=== PATIENT | male | born 1930 | race Caucasian/White ===

== ENCOUNTER 2018-08-01 15:04 | Inpatient (IN) ==
[2018-08-01 16:32] LABS: INR 3.1; PT Patient Result 33.5 SECS
[2018-08-01] MEDS ORDERED: DIPH/TET/ACEL PERT BOOSTER VACCINE 0.5 ML VIAL IM ONE (16:32)
[2018-08-01] MEDS ORDERED: HYDROmorphone 2 MG/1 ML VIAL IV STA (16:32)
[2018-08-01] MEDS ORDERED: ONDANSETRON 4 MG/2 ML VIAL IV STA (16:32)
[2018-08-01 16:54] LABS: Basophils # 0.1 10*3/uL (0.0-0.2); Basophils % 0.7 % (0.0-0.8); Eosinophils # 0.2 10*3/uL (0.0-0.87); Hematocrit 36.6 VOL% (42.0-52.0); Hemoglobin 11.4 GM/DL (14.0-18.0); Immature Granulocytes % 0.8 %; Lymphocytes # 2.4 10*3/uL (1.4-4.0); Lymphocytes % 19.7 % (21.2-54.2); Mean Corpuscular HGB Conc 31.1 GM/DL (32-36); Mean Corpuscular Hemoglobin 29 PG (27-34); Mean Platelet Volume 10.5 FL (9.6-12.0); Monocytes # 1.1 10*3/uL (0.11-0.8); Monocytes % 9.2 % (1.7-12.7); Neutrophils # 8.3 10*3/uL (1.4-7.4); Neutrophils % 67.6 % (38.7-73.9); Platelet Count 205 T/CUMM (130-400); Red Blood Count 3.98 MC/CUMM (3.8-5.5); Red Cell Distribution Width 17.2 % (9.3-17.3); White Blood Count 12.2 T/CUMM (4-12)
[2018-08-01 17:03] LABS: Albumin 3.5 G/DL (3.4-5.0); Bilirubin,Total 1.1 MG/DL (0.2-1.0); Calcium 8.7 MG/DL (8.5-10.1)
[2018-08-01 17:04] LABS: Osmolality,Calculated 290.8 MOS/KG (273-304); Potassium 4.1 MMOL/L (3.5-5.1)
[2018-08-01 17:16] LABS: Apearance,Urine CLEAR (Clear); Bilirubin,Urine Negative (Negative); Blood, Urine Negative (Negative); Glucose,Urine (UA) Negative (Negative); Ketones,Urine Negative (Negative); Mucus,Urine Occasional /LPF (Occasional); Nitrite,Urine Negative (Negative); Protein,Urine Negative; RBC,Urine 2 /HPF (0-4); Urine Color Yellow (Yellow); Urine Specific Gravity 1.011 (1.001-1.035); Urine Urobilinogen < 2.0 EU/DL (0.2-1.0); WBC,Urine <1 /HPF (0-6)
[2018-08-01] MEDS ORDERED: ACETAMINOPHEN 325 MG TABLET PO PRN (18:47)
[2018-08-01] MEDS ORDERED: ONDANSETRON 4 MG/2 ML VIAL IV PRN (18:47)
[2018-08-01] MEDS ORDERED: DIGOXIN 0.125 MG TABLET PO SCH (19:00)
[2018-08-01] MEDS ORDERED: DILTIAZEM 25 MG/5 ML VIAL IV STA (19:05)
[2018-08-01] MEDS: QUEtiapine 25 MG TABLET PO SCH (21:33)
[2018-08-01] MEDS: DIGOXIN 0.125 MG TABLET PO SCH (21:40)
[2018-08-02 06:30] LABS: Basophils # 0.1 10*3/uL (0.0-0.2); Basophils % 0.5 % (0.0-0.8); Eosinophils # 0.1 10*3/uL (0.0-0.87); Eosinophils % 1.1 % (0.00-10.9); Hematocrit 33.3 VOL% (42.0-52.0); Hemoglobin 10.3 GM/DL (14.0-18.0); Immature Granulocytes % 0.4 %; Immature Granulocytes Absolute 0.05 #; Lymphocytes # 1.2 10*3/uL (1.4-4.0); Lymphocytes % 9.5 % (21.2-54.2); Mean Corpuscular HGB Conc 30.9 GM/DL (32-36); Mean Corpuscular Hemoglobin 29 PG (27-34); Mean Corpuscular Volume 93.5 FL (87-102); Monocytes # 1.2 10*3/uL (0.11-0.8); Neutrophils # 10.2 10*3/uL (1.4-7.4); Neutrophils % 79.5 % (38.7-73.9); Platelet Count 187 T/CUMM (130-400); Red Blood Count 3.56 MC/CUMM (3.8-5.5); Red Cell Distribution Width 17.1 % (9.3-17.3); White Blood Count 12.9 T/CUMM (4-12)
[2018-08-02 06:41] LABS: INR 3.7; PT Patient Result 39.5 SECS
[2018-08-02 06:55] LABS: Calcium 8.4 MG/DL (8.5-10.1); Potassium 4.2 MMOL/L (3.5-5.1); Risk Ratio 1.92; Thyroid Stimulating Hormone 0.343 uIU/ml (0.358-3.74); VLDL CHOLESTEROL 12.6 MG/DL
[2018-08-02] MEDS: MULTIVITAMIN (CENTRUM) TABLET PO SCH (10:50)
[2018-08-02] MEDS: FUROSEMIDE 40 MG TABLET PO SCH (10:50)
[2018-08-02] MEDS: TAMSULOSIN 0.4 MG CAPSULE PO SCH (10:50)
[2018-08-02] MEDS: PANTOPRAZOLE 40 MG TABLET PO SCH (10:50)
[2018-08-02] MEDS: FINASTERIDE 5 MG TABLET PO SCH (10:50)
[2018-08-02] MEDS ORDERED: SODIUM CHLORIDE 0.9% 1,000 ML IV PRN ×2 (12:20→13:21)
[2018-08-02] MEDS ORDERED: PHYTONADIONE 5 MG/5 ML ORAL.SYR PO ONE (13:30)
[2018-08-02] MEDS ORDERED: FUROSEMIDE 20 MG/2 ML VIAL IV ONE ×2 (16:49→19:29)
[2018-08-02 18:26] LABS: INR 2.5
[2018-08-02 18:48] LABS: PT Patient Result 26.9 SECS
[2018-08-02] MEDS: QUEtiapine 25 MG TABLET PO SCH (20:25)
[2018-08-03 00:37] LABS: INR 1.5; PT Patient Result 16.7 SECS
[2018-08-03 05:57] LABS: INR 1.3; PT Patient Result 14.4 SECS
[2018-08-03] MEDS ORDERED: VANCOMYCIN INJ 1,000 MG in SODIUM CHLORIDE 0.9% 250 ML IV ONE (06:30)
[2018-08-03] MEDS ORDERED: ceFAZolin 1,000 MG in SYRINGE 1 EACH IV ONE (06:30)
[2018-08-03 06:39] LABS: Calcium 8.6 MG/DL (8.5-10.1); Osmolality,Calculated 282.5 MOS/KG (273-304); Potassium 3.5 MMOL/L (3.5-5.1)
[2018-08-03 06:40] LABS: Calcium 8.8 MG/DL (8.5-10.1); Osmolality,Calculated 280.7 MOS/KG (273-304); Potassium 3.5 MMOL/L (3.5-5.1)
[2018-08-03 07:48] LABS: Basophils # 0.1 10*3/uL (0.0-0.2); Basophils % 0.7 % (0.0-0.8); Eosinophils # 0.8 10*3/uL (0.0-0.87); Hematocrit 29.3 VOL% (42.0-52.0); Hemoglobin 9.1 GM/DL (14.0-18.0); Immature Granulocytes % 0.6 %; Immature Granulocytes Absolute 0.08 #; Lymphocytes # 1.6 10*3/uL (1.4-4.0); Lymphocytes % 12.4 % (21.2-54.2); Mean Corpuscular HGB Conc 31.1 GM/DL (32-36); Mean Corpuscular Hemoglobin 29 PG (27-34); Mean Corpuscular Volume 93.6 FL (87-102); Mean Platelet Volume 11.2 FL (9.6-12.0); Monocytes % 7.7 % (1.7-12.7); Neutrophils # 9.5 10*3/uL (1.4-7.4); Neutrophils % 72.6 % (38.7-73.9); Platelet Count 154 T/CUMM (130-400); Red Blood Count 3.13 MC/CUMM (3.8-5.5); Red Cell Distribution Width 16.6 % (9.3-17.3); White Blood Count 13.1 T/CUMM (4-12)
[2018-08-03] MEDS ORDERED: TUBERCULIN SKIN TEST 0.1 ML SYRINGE INTRADERM ONE (09:14)
[2018-08-03] MEDS ORDERED: SODIUM CHLORIDE 0.9% 1,000 ML IV PRN (10:27)
[2018-08-03] MEDS ORDERED: BACITRACIN OINT 0.9 GM PACK TOP ONE (11:36)
[2018-08-03] MEDS ORDERED: MORPHINE 4 MG/1 ML VIAL IV PRN ×2 (12:52)
[2018-08-03] MEDS ORDERED: SEVOFLURANE 1 UNIT/15 MINUTE INH ONE (13:09)
[2018-08-03] MEDS ORDERED: GLYCOPYRROLATE 0.4 MG/2 ML VIAL ONE (13:10)
[2018-08-03] MEDS ORDERED: PHENYLEPHRINE 10 MG/1 ML VIAL IV ONE (13:10)
[2018-08-03] MEDS ORDERED: ETOMIDATE 40 MG/20 ML VIAL IV ONE (13:10)
[2018-08-03] MEDS ORDERED: PHENYLEPHRINE 1 MG/10 ML SYRINGE IV ONE (13:10)
[2018-08-03] MEDS ORDERED: fentaNYL 100 MCG/2 ML VIAL ONE (13:10)
[2018-08-03] MEDS ORDERED: ESMOLOL 100 MG/10 ML VIAL IV ONE (13:10)
[2018-08-03] MEDS ORDERED: LACTATED RINGERS 1,000 ML IV ONE (13:11)
[2018-08-03] MEDS ORDERED: ROCURONIUM 100 MG/10 ML VIAL IV ONE (13:11)
[2018-08-03] MEDS ORDERED: NEOSTIGMINE 10 MG/10 ML VIAL ONE (13:11)
[2018-08-03] MEDS ORDERED: SODIUM CHLORIDE 0.9% 250 ML IV ONE (13:11)
[2018-08-03 13:56] LABS: Hematocrit 31.8 VOL% (42.0-52.0); Hemoglobin 9.8 GM/DL (14.0-18.0)
[2018-08-03] MEDS: MULTIVITAMIN (CENTRUM) TABLET PO SCH (13:57)
[2018-08-03] MEDS: TAMSULOSIN 0.4 MG CAPSULE PO SCH (13:57)
[2018-08-03] MEDS: PANTOPRAZOLE 40 MG TABLET PO SCH (13:58)
[2018-08-03] MEDS: SODIUM CHLORIDE 0.9% 1,000 ML IV SCH (16:09)
[2018-08-03] MEDS: ceFAZolin 1,000 MG in SYRINGE 1 EACH IV SCH (16:21)
[2018-08-03] MEDS: FUROSEMIDE 40 MG TABLET PO SCH (16:21)
[2018-08-03] MEDS: POTASSIUM CHLORIDE 8 MEQ CAPSULE PO SCH (16:21)
[2018-08-03] MEDS: FINASTERIDE 5 MG TABLET PO SCH (16:22)
[2018-08-03] MEDS: ACETAMINOPHEN 500 MG TABLET PO SCH ×2 (16:22→23:17)
[2018-08-03] MEDS ORDERED: WARFARIN 5 MG TABLET PO SCH (20:00)
[2018-08-03] MEDS: DOCUSATE SODIUM 100 MG CAPSULE PO SCH (21:19)
[2018-08-03] MEDS: QUEtiapine 25 MG TABLET PO SCH (21:19)
[2018-08-03] MEDS: DIGOXIN 0.125 MG TABLET PO SCH (21:19)
[2018-08-04] MEDS: SODIUM CHLORIDE 0.9% 1,000 ML IV SCH ×3 (00:52→11:01)
[2018-08-04] MEDS: ceFAZolin 1,000 MG in SYRINGE 1 EACH IV SCH (01:04)
[2018-08-04] MEDS: ACETAMINOPHEN 500 MG TABLET PO SCH ×2 (04:45→11:55)
[2018-08-04 07:02] LABS: INR 1.3; PT Patient Result 13.6 SECS
[2018-08-04 07:11] LABS: Calcium 7.8 MG/DL (8.5-10.1); Osmolality,Calculated 284.5 MOS/KG (273-304); Potassium 3.7 MMOL/L (3.5-5.1)
[2018-08-04 07:55] LABS: Basophils # 0.1 10*3/uL (0.0-0.2); Basophils % 0.5 % (0.0-0.8); Eosinophils # 0.7 10*3/uL (0.0-0.87); Hematocrit 25.1 VOL% (42.0-52.0); Hemoglobin 7.9 GM/DL (14.0-18.0); Immature Granulocytes % 0.4 %; Immature Granulocytes Absolute 0.04 #; Lymphocytes # 0.9 10*3/uL (1.4-4.0); Lymphocytes % 8.7 % (21.2-54.2); Mean Corpuscular HGB Conc 31.5 GM/DL (32-36); Mean Corpuscular Hemoglobin 29 PG (27-34); Mean Corpuscular Volume 93.3 FL (87-102); Mean Platelet Volume 11.1 FL (9.6-12.0); Monocytes % 9.3 % (1.7-12.7); Neutrophils # 7.6 10*3/uL (1.4-7.4); Neutrophils % 74.1 % (38.7-73.9); Platelet Count 134 T/CUMM (130-400); Red Blood Count 2.69 MC/CUMM (3.8-5.5); Red Cell Distribution Width 15.6 % (9.3-17.3); White Blood Count 10.2 T/CUMM (4-12)
[2018-08-04] MEDS ORDERED: PANTOPRAZOLE 40 MG TABLET PO SCH (09:00)
[2018-08-04] MEDS: TAMSULOSIN 0.4 MG CAPSULE PO SCH (09:24)
[2018-08-04] MEDS: FINASTERIDE 5 MG TABLET PO SCH (09:28)
[2018-08-04] MEDS: DOCUSATE SODIUM 100 MG CAPSULE PO SCH ×2 (09:28→21:00)
[2018-08-04] MEDS: FERROUS SULFATE 325 MG TABLET PO SCH ×2 (09:28→21:01)
[2018-08-04] MEDS: MULTIVITAMIN (CENTRUM) TABLET PO SCH (09:28)
[2018-08-04] MEDS: FUROSEMIDE 40 MG TABLET PO SCH (09:28)
[2018-08-04] MEDS: ASPIRIN EC 81 MG TABLET PO SCH ×2 (09:28→21:01)
[2018-08-04] MEDS: PANTOPRAZOLE 40 MG TABLET PO SCH (09:28)
[2018-08-04] MEDS ORDERED: SODIUM CHLORIDE 0.9% 1,000 ML IV PRN (11:45)
[2018-08-04] MEDS ORDERED: diphenhydrAMINE CAP 25 MG CAPSULE PO PRN (11:45)
[2018-08-04] MEDS ORDERED: FUROSEMIDE 20 MG/2 ML VIAL IV SCH (12:00)
[2018-08-04 13:07] LABS: Hematocrit 27.2 VOL% (42.0-52.0); Hemoglobin 8.3 GM/DL (14.0-18.0)
[2018-08-04] MEDS: MIDODRINE 5 MG TABLET PO SCH ×3 (16:36→21:00)
[2018-08-04] MEDS: WARFARIN 2.5 MG TABLET PO SCH (18:50)
[2018-08-04] MEDS: QUEtiapine 25 MG TABLET PO SCH (21:01)
[2018-08-05 03:12] LABS: Basophils % 0.4 % (0.0-0.8); Eosinophils # 0.8 10*3/uL (0.0-0.87); Eosinophils % 7.2 % (0.00-10.9); Hematocrit 32.2 VOL% (42.0-52.0); Immature Granulocytes % 0.5 %; Immature Granulocytes Absolute 0.05 #; Mean Corpuscular HGB Conc 31.1 GM/DL (32-36); Mean Corpuscular Hemoglobin 29 PG (27-34); Mean Corpuscular Volume 91.7 FL (87-102); Mean Platelet Volume 10.9 FL (9.6-12.0); Monocytes # 0.8 10*3/uL (0.11-0.8); Monocytes % 8.1 % (1.7-12.7); Neutrophils # 7.7 10*3/uL (1.4-7.4); Neutrophils % 73.8 % (38.7-73.9); Platelet Count 138 T/CUMM (130-400); Red Blood Count 3.51 MC/CUMM (3.8-5.5); Red Cell Distribution Width 15.7 % (9.3-17.3); White Blood Count 10.4 T/CUMM (4-12)
[2018-08-05 03:17] LABS: INR 1.5; PT Patient Result 16.5 SECS
[2018-08-05 03:29] LABS: Albumin 2.4 G/DL (3.4-5.0); Bilirubin,Total 1.6 MG/DL (0.2-1.0); Calcium 7.9 MG/DL (8.5-10.1); Osmolality,Calculated 288.3 MOS/KG (273-304); Potassium 3.7 MMOL/L (3.5-5.1); Total Protein 5.8 G/DL (6.4-8.3)
[2018-08-05] MEDS: SODIUM CHLORIDE 0.9% 1,000 ML IV SCH ×2 (04:40→15:03)
[2018-08-05] MEDS ORDERED: DIGOXIN 0.25 MG TABLET PO ONE (07:55)
[2018-08-05] MEDS: HEPARIN DRIP 25,000 UNITS/500 ML PREMIX IV SCH (08:23)
[2018-08-05] MEDS: MAGNESIUM HYDROXIDE SUSP 30 ML UDCUP PO PRN (09:40)
[2018-08-05] MEDS: MIDODRINE 5 MG TABLET PO SCH (09:41)
[2018-08-05] MEDS: PANTOPRAZOLE 40 MG TABLET PO SCH (09:41)
[2018-08-05] MEDS: POTASSIUM CHLORIDE 8 MEQ CAPSULE PO SCH (09:41)
[2018-08-05] MEDS: MULTIVITAMIN (CENTRUM) TABLET PO SCH (09:41)
[2018-08-05] MEDS: FINASTERIDE 5 MG TABLET PO SCH (09:41)
[2018-08-05] MEDS: FUROSEMIDE 40 MG TABLET PO SCH (09:41)
[2018-08-05] MEDS: TAMSULOSIN 0.4 MG CAPSULE PO SCH (09:41)
[2018-08-05] MEDS: FERROUS SULFATE 325 MG TABLET PO SCH ×2 (09:41→21:13)
[2018-08-05] MEDS: ASPIRIN EC 81 MG TABLET PO SCH ×2 (09:41→21:14)
[2018-08-05] MEDS: DOCUSATE SODIUM 100 MG CAPSULE PO SCH ×2 (09:41→21:13)
[2018-08-05] MEDS ORDERED: MIDODRINE 5 MG TABLET PO PRN (10:45)
[2018-08-05] MEDS: WARFARIN 2.5 MG TABLET PO SCH (19:50)
[2018-08-05] MEDS: METOPROLOL TARTRATE 25 MG TABLET PO SCH (21:13)
[2018-08-05] MEDS: QUEtiapine 25 MG TABLET PO SCH (21:13)
[2018-08-06] MEDS: SODIUM CHLORIDE 0.9% 1,000 ML IV SCH ×3 (00:14→20:05)
[2018-08-06 05:50] LABS: Basophils # 0.1 10*3/uL (0.0-0.2); Basophils % 0.6 % (0.0-0.8); Eosinophils # 0.3 10*3/uL (0.0-0.87); Eosinophils % 2.8 % (0.00-10.9); Hematocrit 30.3 VOL% (42.0-52.0); Hemoglobin 9.6 GM/DL (14.0-18.0); Immature Granulocytes % 0.5 %; Immature Granulocytes Absolute 0.06 #; Lymphocytes # 1.1 10*3/uL (1.4-4.0); Lymphocytes % 10.4 % (21.2-54.2); Mean Corpuscular HGB Conc 31.7 GM/DL (32-36); Mean Corpuscular Hemoglobin 29 PG (27-34); Mean Corpuscular Volume 90.2 FL (87-102); Mean Platelet Volume 10.6 FL (9.6-12.0); Monocytes # 0.9 10*3/uL (0.11-0.8); Monocytes % 8.5 % (1.7-12.7); Neutrophils # 8.4 10*3/uL (1.4-7.4); Neutrophils % 77.2 % (38.7-73.9); Platelet Count 174 T/CUMM (130-400); Red Blood Count 3.36 MC/CUMM (3.8-5.5); Red Cell Distribution Width 15.5 % (9.3-17.3); White Blood Count 10.9 T/CUMM (4-12)
[2018-08-06 06:13] LABS: Albumin 2.2 G/DL (3.4-5.0); Bilirubin,Total 1.6 MG/DL (0.2-1.0); Calcium 7.8 MG/DL (8.5-10.1); Osmolality,Calculated 283.5 MOS/KG (273-304); Potassium 3.7 MMOL/L (3.5-5.1); Total Protein 5.7 G/DL (6.4-8.3)
[2018-08-06 06:47] LABS: INR 1.7; PT Patient Result 18.8 SECS
[2018-08-06] MEDS: PANTOPRAZOLE 40 MG TABLET PO SCH (10:21)
[2018-08-06] MEDS: FERROUS SULFATE 325 MG TABLET PO SCH ×2 (10:21→20:01)
[2018-08-06] MEDS: FUROSEMIDE 40 MG TABLET PO SCH (10:22)
[2018-08-06] MEDS: METOPROLOL TARTRATE 25 MG TABLET PO SCH (10:22)
[2018-08-06] MEDS: MULTIVITAMIN (CENTRUM) TABLET PO SCH ×2 (10:22→10:40)
[2018-08-06] MEDS: FINASTERIDE 5 MG TABLET PO SCH (10:22)
[2018-08-06] MEDS: DOCUSATE SODIUM 100 MG CAPSULE PO SCH ×2 (10:22→20:01)
[2018-08-06] MEDS: TAMSULOSIN 0.4 MG CAPSULE PO SCH (10:33)
[2018-08-06] MEDS: ASPIRIN EC 81 MG TABLET PO SCH ×2 (10:35→20:01)
[2018-08-06] MEDS: HEPARIN DRIP 25,000 UNITS/500 ML PREMIX IV SCH (11:50)
[2018-08-06] MEDS ORDERED: METOPROLOL TARTRATE 5 MG/5 ML VIAL IV ONE (11:53)
[2018-08-06] MEDS: BISOPROLOL 5 MG TABLET PO SCH (12:13)
[2018-08-06] MEDS: WARFARIN 2.5 MG TABLET PO SCH (18:17)
[2018-08-06] MEDS: QUEtiapine 25 MG TABLET PO SCH (20:01)
[2018-08-06] MEDS: DIGOXIN 0.125 MG TABLET PO SCH (20:01)
[2018-08-07 01:29] LABS: INR 2.1
[2018-08-07 01:30] LABS: PT Patient Result 22.2 SECS
[2018-08-07 01:40] LABS: Bilirubin,Total 1.4 MG/DL (0.2-1.0); Calcium 7.3 MG/DL (8.5-10.1); Osmolality,Calculated 283.5 MOS/KG (273-304); Potassium 3.5 MMOL/L (3.5-5.1)
[2018-08-07] MEDS: SODIUM CHLORIDE 0.9% 1,000 ML IV SCH (06:27)
[2018-08-07] MEDS: FUROSEMIDE 40 MG TABLET PO SCH (10:08)
[2018-08-07] MEDS: PANTOPRAZOLE 40 MG TABLET PO SCH (10:08)
[2018-08-07] MEDS: MULTIVITAMIN (CENTRUM) TABLET PO SCH (10:08)
[2018-08-07] MEDS: FINASTERIDE 5 MG TABLET PO SCH (10:08)
[2018-08-07] MEDS: ASPIRIN EC 81 MG TABLET PO SCH ×2 (10:08→20:37)
[2018-08-07] MEDS: TAMSULOSIN 0.4 MG CAPSULE PO SCH (10:08)
[2018-08-07] MEDS: BISOPROLOL 5 MG TABLET PO SCH (10:08)
[2018-08-07] MEDS: DOCUSATE SODIUM 100 MG CAPSULE PO SCH ×2 (10:08→20:37)
[2018-08-07] MEDS: FERROUS SULFATE 325 MG TABLET PO SCH ×2 (10:08→20:37)
[2018-08-07] MEDS: POTASSIUM CHLORIDE 8 MEQ CAPSULE PO SCH (10:10)
[2018-08-07] MEDS: HEPARIN DRIP 25,000 UNITS/500 ML PREMIX IV SCH (15:01)
[2018-08-07] MEDS: WARFARIN 2.5 MG TABLET PO SCH (18:34)
[2018-08-07] MEDS: QUEtiapine 25 MG TABLET PO SCH (20:37)
[2018-08-08 00:43] LABS: Bilirubin,Total 1.4 MG/DL (0.2-1.0); Calcium 7.4 MG/DL (8.5-10.1); Osmolality,Calculated 285.4 MOS/KG (273-304); Potassium 3.6 MMOL/L (3.5-5.1)
[2018-08-08 08:12] LABS: INR 2.3
[2018-08-08 08:14] LABS: PT Patient Result 25.2 SECS
[2018-08-08] MEDS: DOCUSATE SODIUM 100 MG CAPSULE PO SCH (08:20)
[2018-08-08] MEDS: BISOPROLOL 5 MG TABLET PO SCH (08:20)
[2018-08-08] MEDS: PANTOPRAZOLE 40 MG TABLET PO SCH (08:20)
[2018-08-08] MEDS: TAMSULOSIN 0.4 MG CAPSULE PO SCH (08:20)
[2018-08-08] MEDS: FUROSEMIDE 40 MG TABLET PO SCH (08:21)
[2018-08-08] MEDS: MULTIVITAMIN (CENTRUM) TABLET PO SCH (08:21)
[2018-08-08] MEDS: ASPIRIN EC 81 MG TABLET PO SCH (08:21)
[2018-08-08] MEDS: FINASTERIDE 5 MG TABLET PO SCH (08:21)
[2018-08-08] MEDS: FERROUS SULFATE 325 MG TABLET PO SCH (08:21)
[2018-08-08] MEDS: SODIUM CHLORIDE 0.9% 1,000 ML IV SCH ×3 (10:46→13:27)
[2018-08-08 11:59] VITALS: BP 141/76
[2018-08-08] MEDS: HEPARIN DRIP 25,000 UNITS/500 ML PREMIX IV SCH (12:45)
[2018-08-08] MEDS: MAGNESIUM HYDROXIDE SUSP 30 ML UDCUP PO PRN (14:58)
[2018-08-10] MEDS ORDERED: WARFARIN 5 MG TABLET PO SCH (18:00)
== END 2018-08-08 15:07 | DRG 470 ==
LOC: N.ED 15:04 → N.EDINP 18:01 → SUATTDRO 18:01 → N.EDINP 18:57 → N.3E 19:07 → N.4E 08-05 17:48
PROVIDERS: ADMIT Internal Medicine; ATTEND Internal Medicine Infectious Disease

== ENCOUNTER 2018-09-10 16:21 | Inpatient (IN) ==
[2018-09-10] MEDS ORDERED: SODIUM CHLORIDE 0.9% 500 ML IV STA (17:00)
[2018-09-10] MEDS ORDERED: PIPERACILLIN/TAZOBACTAM 3,375 MG in SODIUM CHLORIDE 0.9% 100 ML IV STA (17:00)
[2018-09-10 17:41] LABS: Basophils # 0.1 10*3/uL (0.0-0.2); Basophils % 0.2 % (0.0-0.8); Eosinophils # 0.1 10*3/uL (0.0-0.87); Eosinophils % 0.2 % (0.00-10.9); Hematocrit 41.3 VOL% (42.0-52.0); Hemoglobin 13.1 GM/DL (14.0-18.0); Immature Granulocytes % 1.7 %; Immature Granulocytes Absolute 0.49 #; Lymphocytes % 7.2 % (21.2-54.2); Mean Corpuscular HGB Conc 31.7 GM/DL (32-36); Mean Corpuscular Hemoglobin 29 PG (27-34); Mean Corpuscular Volume 91.2 FL (87-102); Mean Platelet Volume 10.9 FL (9.6-12.0); Monocytes # 1.7 10*3/uL (0.11-0.8); Monocytes % 6.2 % (1.7-12.7); Neutrophils # 23.7 10*3/uL (1.4-7.4); Neutrophils % 84.5 % (38.7-73.9); Platelet Count 454 T/CUMM (130-400); Red Blood Count 4.53 MC/CUMM (3.8-5.5); Red Cell Distribution Width 20.4 % (9.3-17.3); White Blood Count 28.1 T/CUMM (4-12)
[2018-09-10 17:59] LABS: Alanine Aminotransferase 18 U/L (16-61); Albumin 1.9 G/DL (3.4-5.0); Alkaline Phosphatase 148 U/L (45-117); Amylase 48 U/L (25-115); Aspartate Amino Transferase 32 U/L (0-37); Blood Urea Nitrogen 52 MG/DL (7-18); Calcium 7.8 MG/DL (8.5-10.1); Glucose 191 MG/DL (74-106); Osmolality,Calculated 288.1 MOS/KG (273-304); Potassium 3.5 MMOL/L (3.5-5.1); Sodium 135 MMOL/L (136-145)
[2018-09-10 18:04] LABS: Band Neutrophils 2 % (0-10); Lymphocytes 6 % (20-55); Segmented Neutrophils 89 % (50-85)
[2018-09-10 18:05] LABS: Elliptocytes 1+; Hypochromasia 1+; Microcytosis Slight; Platelet Estimate Adequate; Stomatocytes Slight; Target Cells Slight; Total Cells Counted 100
[2018-09-10] MEDS ORDERED: SODIUM CHLORIDE 0.9% 2,300 ML IV ONE (18:24)
[2018-09-10 18:47] LABS: Sedimentation Rate-Westergren 46 MM/HR (0-20)
[2018-09-10 18:50] LABS: PT Patient Result 98.1 SECS
[2018-09-10 18:51] LABS: INR 9.2; Partial Thromboplastin Time 64.6 SECS (0-40)
[2018-09-10] MEDS ORDERED: MIDODRINE 5 MG TABLET PO PRN (19:11)
[2018-09-10] MEDS ORDERED: ONDANSETRON 4 MG/2 ML VIAL IV PRN (19:18)
[2018-09-10] MEDS ORDERED: VANCOMYCIN INJ 1,000 MG in SODIUM CHLORIDE 0.9% 250 ML IV STA (19:20)
[2018-09-10] MEDS: SODIUM CHLORIDE 0.9% 1,000 ML IV SCH (20:32)
[2018-09-10] MEDS: metroNIDAZOLE INJ 500 MG in PREMIX 1 EACH IV SCH (23:05)
[2018-09-11] MEDS: VANCOMYCIN 50 MG/ML 60 ML/BOTTLE PO SCH ×4 (00:19→19:48)
[2018-09-11] MEDS ORDERED: PIPERACILLIN/TAZOBACTAM 3,375 MG in SODIUM CHLORIDE 0.9% 100 ML IV SCH (02:00)
[2018-09-11] MEDS: SODIUM CHLORIDE 0.9% 1,000 ML IV SCH ×2 (04:44→23:02)
[2018-09-11 05:09] LABS: INR 2.1
[2018-09-11 05:10] LABS: PT Patient Result 23.2 SECS
[2018-09-11 05:22] LABS: Basophils # 0.1 10*3/uL (0.0-0.2); Basophils % 0.3 % (0.0-0.8); Eosinophils # 0.2 10*3/uL (0.0-0.87); Hematocrit 34.2 VOL% (42.0-52.0); Immature Granulocytes % 1.7 %; Immature Granulocytes Absolute 0.32 #; Lymphocytes # 1.6 10*3/uL (1.4-4.0); Lymphocytes % 8.6 % (21.2-54.2); Mean Corpuscular HGB Conc 31.6 GM/DL (32-36); Mean Corpuscular Hemoglobin 29 PG (27-34); Mean Platelet Volume 11.1 FL (9.6-12.0); Monocytes # 1.3 10*3/uL (0.11-0.8); Monocytes % 6.7 % (1.7-12.7); NRBC # 0.02 10*3/uL; Neutrophils # 15.5 10*3/uL (1.4-7.4); Neutrophils % 81.7 % (38.7-73.9); Platelet Count 383 T/CUMM (130-400); Red Blood Count 3.76 MC/CUMM (3.8-5.5); Red Cell Distribution Width 20.1 % (9.3-17.3)
[2018-09-11 05:23] LABS: Hemoglobin 10.8 GM/DL (14.0-18.0)
[2018-09-11 05:25] LABS: Albumin 2.3 G/DL (3.4-5.0); Bilirubin,Total 4.3 MG/DL (0.2-1.0); Osmolality,Calculated 285.8 MOS/KG (273-304); Potassium 2.8 MMOL/L (3.5-5.1); Total Protein 5.5 G/DL (6.4-8.3)
[2018-09-11] MEDS ORDERED: POTASSIUM CHLORIDE 20 MEQ TABLET PO PRN (07:19)
[2018-09-11] MEDS: metroNIDAZOLE INJ 500 MG in PREMIX 1 EACH IV SCH ×2 (07:40→12:51)
[2018-09-11] MEDS ORDERED: AMINO ACIDS PO SCH (09:00)
[2018-09-11] MEDS ORDERED: PROTEIN HYDROLYS PO SCH (09:00)
[2018-09-11 11:06] LABS: Apearance,Urine CLEAR (Clear); Bacteria,Urine Occasional /HPF (Few); Bilirubin,Urine Negative (Negative); Blood, Urine Small mg/dL (Negative); Glucose,Urine (UA) Negative (Negative); Hyaline Casts,Urine 4 /LPF (0-3); Ketones,Urine 5 mg/dL (Negative); Mucus,Urine Occasional /LPF (Occasional); Nitrite,Urine Negative (Negative); Protein,Urine Negative; RBC,Urine 2 /HPF (0-4); Squamous Epithelial Cell,Urine Occasional /HPF (0-10); Urine Color Amber (Yellow); Urine Specific Gravity 1.031 (1.001-1.035); WBC,Urine 12 /HPF (0-6)
[2018-09-11] MEDS: MULTIVITAMIN (CENTRUM) TABLET PO SCH (12:49)
[2018-09-11] MEDS: CALCIUM (CARBONATE)/VITAMIN D 600 MG-400 UNIT TABLET PO SCH (12:49)
[2018-09-11] MEDS: ASPIRIN EC 81 MG TABLET PO SCH ×2 (12:49→17:23)
[2018-09-11] MEDS: FINASTERIDE 5 MG TABLET PO SCH (12:50)
[2018-09-11] MEDS: FERROUS SULFATE 325 MG TABLET PO SCH ×2 (12:50→17:24)
[2018-09-11] MEDS: FUROSEMIDE 40 MG TABLET PO SCH (12:50)
[2018-09-11] MEDS: BISOPROLOL 5 MG TABLET PO SCH (12:50)
[2018-09-11] MEDS: PANTOPRAZOLE 40 MG TABLET PO SCH (12:50)
[2018-09-11] MEDS: TAMSULOSIN 0.4 MG CAPSULE PO SCH (12:50)
[2018-09-11] MEDS: MEGESTROL 400 MG/10 ML UDCUP PO SCH (12:50)
[2018-09-11] MEDS: ASCORBIC ACID 500 MG TABLET PO SCH (12:51)
[2018-09-11] MEDS: ZINC SULFATE 220 MG CAPSULE PO SCH (12:51)
[2018-09-11] MEDS: MEROPENEM 500 MG in SODIUM CHLORIDE 0.9% 100 ML IV SCH (17:23)
[2018-09-11] MEDS ORDERED: POTASSIUM CHLORIDE 20 MEQ TABLET PO ONE (17:38)
[2018-09-12] MEDS: SODIUM CHLORIDE 0.9% 1,000 ML IV SCH ×2 (00:19→10:30)
[2018-09-12] MEDS: VANCOMYCIN 50 MG/ML 60 ML/BOTTLE PO SCH ×4 (00:20→17:57)
[2018-09-12] MEDS: MEROPENEM 500 MG in SODIUM CHLORIDE 0.9% 100 ML IV SCH ×2 (03:28→16:15)
[2018-09-12 05:54] LABS: Basophils # 0.2 10*3/uL (0.0-0.2); Basophils % 0.6 % (0.0-0.8); Eosinophils % 0.1 % (0.00-10.9); Hematocrit 44.2 VOL% (42.0-52.0); Immature Granulocytes % 3.2 %; Immature Granulocytes Absolute 0.99 #; Lymphocytes # 1.3 10*3/uL (1.4-4.0); Lymphocytes % 4.1 % (21.2-54.2); Mean Corpuscular Hemoglobin 28 PG (27-34); Mean Corpuscular Volume 91.7 FL (87-102); Mean Platelet Volume 11.2 FL (9.6-12.0); Monocytes # 1.9 10*3/uL (0.11-0.8); Monocytes % 6.2 % (1.7-12.7); NRBC # 0.09 10*3/uL; Neutrophils # 26.9 10*3/uL (1.4-7.4); Neutrophils % 85.8 % (38.7-73.9); Red Cell Distribution Width 21.3 % (9.3-17.3)
[2018-09-12 06:01] LABS: Hemoglobin 13.7 GM/DL (14.0-18.0); INR 3.8; Red Blood Count 4.82 MC/CUMM (3.8-5.5); White Blood Count 31.3 T/CUMM (4-12)
[2018-09-12 06:02] LABS: Platelet Count 532 T/CUMM (130-400)
[2018-09-12 06:05] LABS: PT Patient Result 40.3 SECS
[2018-09-12 06:14] LABS: Band Neutrophils 5 % (0-10); Burr Cells Slight; Hypochromasia 1+; Lymphocytes 3 % (20-55); Ovalocytes Slight; Platelet Estimate Adequate; Segmented Neutrophils 84 % (50-85); Total Cells Counted 100
[2018-09-12 06:29] LABS: Bilirubin,Direct 1.99 MG/DL (0.0-0.20); Bilirubin,Indirect 1.3 MG/DL (0.0-1.0); Bilirubin,Total 3.3 MG/DL (0.2-1.0); Total Protein 5.8 G/DL (6.4-8.3)
[2018-09-12 06:32] LABS: Calcium 8.4 MG/DL (8.5-10.1); Osmolality,Calculated 294.3 MOS/KG (273-304); Potassium 3.3 MMOL/L (3.5-5.1)
[2018-09-12] MEDS: BISOPROLOL 5 MG TABLET PO SCH (09:34)
[2018-09-12] MEDS: POTASSIUM CHLORIDE 8 MEQ CAPSULE PO SCH (09:34)
[2018-09-12] MEDS: FUROSEMIDE 40 MG TABLET PO SCH (09:34)
[2018-09-12] MEDS: ASCORBIC ACID 500 MG TABLET PO SCH (09:34)
[2018-09-12] MEDS: PANTOPRAZOLE 40 MG TABLET PO SCH (09:34)
[2018-09-12] MEDS: FERROUS SULFATE 325 MG TABLET PO SCH ×2 (09:34→17:54)
[2018-09-12] MEDS: MEGESTROL 400 MG/10 ML UDCUP PO SCH (09:34)
[2018-09-12] MEDS: ZINC SULFATE 220 MG CAPSULE PO SCH (09:35)
[2018-09-12] MEDS: CALCIUM (CARBONATE)/VITAMIN D 600 MG-400 UNIT TABLET PO SCH (09:35)
[2018-09-12] MEDS: MULTIVITAMIN (CENTRUM) TABLET PO SCH (09:35)
[2018-09-12] MEDS: DIGOXIN 0.125 MG TABLET PO SCH (09:35)
[2018-09-12] MEDS: FINASTERIDE 5 MG TABLET PO SCH (09:35)
[2018-09-12] MEDS: TAMSULOSIN 0.4 MG CAPSULE PO SCH (09:35)
[2018-09-12] MEDS: ASPIRIN EC 81 MG TABLET PO SCH ×2 (09:35→17:55)
[2018-09-12] MEDS: POTASSIUM CHLORIDE RIDER 10 MEQ in PREMIX 1 EACH IV PRN ×4 (15:30→23:01)
[2018-09-12] MEDS: SODIUM CHLOR 0.9% KCL 20 MEQ 20 MEQ/1,000 ML BAG IV SCH (15:30)
[2018-09-12] MEDS ORDERED: DEXTROSE 50% 25 GM/50 ML SYRINGE IV PRN (16:13)
[2018-09-12] MEDS ORDERED: GLUCAGON 1 MG VIAL IM PRN (16:13)
[2018-09-12] MEDS: INSULIN REGULAR 100 UNIT/ML SUBCUT SCH (18:32)
[2018-09-13] MEDS: INSULIN REGULAR 100 UNIT/ML SUBCUT SCH ×4 (00:55→17:53)
[2018-09-13] MEDS: VANCOMYCIN 50 MG/ML 60 ML/BOTTLE PO SCH ×4 (00:58→17:54)
[2018-09-13] MEDS: MEROPENEM 500 MG in SODIUM CHLORIDE 0.9% 100 ML IV SCH (03:29)
[2018-09-13 05:05] LABS: Basophils # 0.1 10*3/uL (0.0-0.2); Basophils % 0.4 % (0.0-0.8); Eosinophils # 0.3 10*3/uL (0.0-0.87); Eosinophils % 1.3 % (0.00-10.9); Hematocrit 41.8 VOL% (42.0-52.0); Hemoglobin 13.1 GM/DL (14.0-18.0); Immature Granulocytes Absolute 0.68 #; Lymphocytes # 2.1 10*3/uL (1.4-4.0); Lymphocytes % 9.1 % (21.2-54.2); Mean Corpuscular HGB Conc 31.3 GM/DL (32-36); Mean Corpuscular Hemoglobin 29 PG (27-34); Mean Corpuscular Volume 92.5 FL (87-102); Mean Platelet Volume 10.6 FL (9.6-12.0); Monocytes # 1.4 10*3/uL (0.11-0.8); Monocytes % 6.3 % (1.7-12.7); NRBC # 0.06 10*3/uL; Neutrophils # 18.2 10*3/uL (1.4-7.4); Neutrophils % 79.9 % (38.7-73.9); Platelet Count 510 T/CUMM (130-400); Red Blood Count 4.52 MC/CUMM (3.8-5.5); Red Cell Distribution Width 21.7 % (9.3-17.3); White Blood Count 22.8 T/CUMM (4-12)
[2018-09-13 05:26] LABS: Band Neutrophils 7 % (0-10); Eosinophils 1 % (0-10); Hypochromasia 1+; Lymphocytes 6 % (20-55); Nucleated Red Blood Cells 1 (0-5); Segmented Neutrophils 85 % (50-85); Total Cells Counted 100
[2018-09-13 05:27] LABS: Calcium 7.9 MG/DL (8.5-10.1); Microcytosis 1+; Osmolality,Calculated 307.6 MOS/KG (273-304); Polychromasia Slight; Potassium 3.8 MMOL/L (3.5-5.1)
[2018-09-13 05:36] LABS: PT Patient Result 53.5 SECS
[2018-09-13 05:45] LABS: Bilirubin,Total 1.6 MG/DL (0.2-1.0); Calcium 7.9 MG/DL (8.5-10.1); Osmolality,Calculated 302.8 MOS/KG (273-304); Potassium 3.8 MMOL/L (3.5-5.1); Total Protein 5.5 G/DL (6.4-8.3)
[2018-09-13 05:51] LABS: Calcium 7.9 MG/DL (8.5-10.1); Osmolality,Calculated 305.7 MOS/KG (273-304); Potassium 3.8 MMOL/L (3.5-5.1); Prealbumin 7.4 MG/DL (20-40)
[2018-09-13] MEDS: SODIUM CHLOR 0.9% KCL 20 MEQ 20 MEQ/1,000 ML BAG IV SCH (09:28)
[2018-09-13] MEDS: FINASTERIDE 5 MG TABLET PO SCH (09:50)
[2018-09-13] MEDS: MEGESTROL 400 MG/10 ML UDCUP PO SCH (09:50)
[2018-09-13] MEDS: CALCIUM (CARBONATE)/VITAMIN D 600 MG-400 UNIT TABLET PO SCH (09:50)
[2018-09-13] MEDS: ASCORBIC ACID 500 MG TABLET PO SCH (09:50)
[2018-09-13] MEDS: FERROUS SULFATE 325 MG TABLET PO SCH ×2 (09:50→17:53)
[2018-09-13] MEDS: PANTOPRAZOLE 40 MG TABLET PO SCH (09:51)
[2018-09-13] MEDS: TAMSULOSIN 0.4 MG CAPSULE PO SCH (09:51)
[2018-09-13] MEDS: ZINC SULFATE 220 MG CAPSULE PO SCH (09:51)
[2018-09-13] MEDS: MULTIVITAMIN (CENTRUM) TABLET PO SCH (09:51)
[2018-09-13] MEDS: ASPIRIN EC 81 MG TABLET PO SCH ×2 (09:51→17:53)
[2018-09-13] MEDS: FUROSEMIDE 40 MG/4 ML VIAL IV SCH (11:02)
[2018-09-13] MEDS: BISOPROLOL 5 MG TABLET PO SCH (11:02)
[2018-09-14] MEDS: VANCOMYCIN 50 MG/ML 60 ML/BOTTLE PO SCH ×4 (00:25→17:45)
[2018-09-14] MEDS: INSULIN REGULAR 100 UNIT/ML SUBCUT SCH ×4 (00:25→17:45)
[2018-09-14 05:14] LABS: Basophils # 0.1 10*3/uL (0.0-0.2); Basophils % 0.6 % (0.0-0.8); Eosinophils # 0.5 10*3/uL (0.0-0.87); Eosinophils % 3.3 % (0.00-10.9); Hematocrit 40.8 VOL% (42.0-52.0); Hemoglobin 12.4 GM/DL (14.0-18.0); Immature Granulocytes % 4.1 %; Immature Granulocytes Absolute 0.63 #; Lymphocytes # 1.2 10*3/uL (1.4-4.0); Lymphocytes % 7.6 % (21.2-54.2); Mean Corpuscular HGB Conc 30.4 GM/DL (32-36); Mean Corpuscular Hemoglobin 29 PG (27-34); Mean Corpuscular Volume 94.7 FL (87-102); Mean Platelet Volume 11.1 FL (9.6-12.0); Monocytes # 0.7 10*3/uL (0.11-0.8); Monocytes % 4.5 % (1.7-12.7); Neutrophils # 12.4 10*3/uL (1.4-7.4); Neutrophils % 79.9 % (38.7-73.9); Platelet Count 513 T/CUMM (130-400); Red Blood Count 4.31 MC/CUMM (3.8-5.5); Red Cell Distribution Width 21.8 % (9.3-17.3); White Blood Count 15.5 T/CUMM (4-12)
[2018-09-14 05:33] LABS: Albumin 1.7 G/DL (3.4-5.0); Calcium 7.6 MG/DL (8.5-10.1); Osmolality,Calculated 306.6 MOS/KG (273-304); Potassium 3.8 MMOL/L (3.5-5.1); Total Protein 5.1 G/DL (6.4-8.3)
[2018-09-14 05:38] LABS: Band Neutrophils 3 % (0-10); Eosinophils 6 % (0-10); Hypochromasia 1+; Lymphocytes 10 % (20-55); Platelet Estimate Adequate; Segmented Neutrophils 78 % (50-85); Total Cells Counted 100
[2018-09-14 05:39] LABS: Microcytosis Slight
[2018-09-14] MEDS: SODIUM CHLOR 0.9% KCL 20 MEQ 20 MEQ/1,000 ML BAG IV SCH (05:42)
[2018-09-14] MEDS: MEGESTROL 400 MG/10 ML UDCUP PO SCH (09:39)
[2018-09-14] MEDS: ZINC SULFATE 220 MG CAPSULE PO SCH (09:39)
[2018-09-14] MEDS: MULTIVITAMIN (CENTRUM) TABLET PO SCH (09:39)
[2018-09-14] MEDS: DIGOXIN 0.125 MG TABLET PO SCH (09:39)
[2018-09-14] MEDS: ACETAMINOPHEN 325 MG TABLET PO PRN (09:40)
[2018-09-14] MEDS: CALCIUM (CARBONATE)/VITAMIN D 600 MG-400 UNIT TABLET PO SCH (09:40)
[2018-09-14] MEDS: BISOPROLOL 5 MG TABLET PO SCH (09:40)
[2018-09-14] MEDS: ASPIRIN EC 81 MG TABLET PO SCH ×2 (09:40→17:45)
[2018-09-14] MEDS: ASCORBIC ACID 500 MG TABLET PO SCH (09:40)
[2018-09-14] MEDS: POTASSIUM CHLORIDE 8 MEQ CAPSULE PO SCH (09:40)
[2018-09-14] MEDS: PANTOPRAZOLE 40 MG TABLET PO SCH (09:41)
[2018-09-14] MEDS: FERROUS SULFATE 325 MG TABLET PO SCH ×2 (09:41→17:45)
[2018-09-14] MEDS: TAMSULOSIN 0.4 MG CAPSULE PO SCH (09:41)
[2018-09-14] MEDS: FUROSEMIDE 40 MG/4 ML VIAL IV SCH (09:41)
[2018-09-14] MEDS: FINASTERIDE 5 MG TABLET PO SCH (09:41)
[2018-09-14 10:20] LABS: INR 1.9; PT Patient Result 20.7 SECS
[2018-09-14] MEDS: HEPARIN DRIP 25,000 UNITS/500 ML PREMIX IV SCH (11:54)
[2018-09-15] MEDS: INSULIN REGULAR 100 UNIT/ML SUBCUT SCH ×4 (00:54→17:47)
[2018-09-15] MEDS: VANCOMYCIN 50 MG/ML 60 ML/BOTTLE PO SCH ×4 (00:58→17:46)
[2018-09-15 06:28] LABS: Calcium 7.5 MG/DL (8.5-10.1); INR 1.4; PT Patient Result 14.8 SECS; Potassium 3.7 MMOL/L (3.5-5.1)
[2018-09-15 06:35] LABS: Partial Thromboplastin Time 42.5 SECS (0-40)
[2018-09-15 06:54] LABS: Basophils # 0.1 10*3/uL (0.0-0.2); Basophils % 0.7 % (0.0-0.8); Eosinophils # 0.7 10*3/uL (0.0-0.87); Eosinophils % 4.4 % (0.00-10.9); Hemoglobin 12.5 GM/DL (14.0-18.0); Immature Granulocytes % 3.8 %; Immature Granulocytes Absolute 0.58 #; Lymphocytes # 1.6 10*3/uL (1.4-4.0); Lymphocytes % 10.3 % (21.2-54.2); Mean Corpuscular HGB Conc 30.5 GM/DL (32-36); Mean Corpuscular Hemoglobin 29 PG (27-34); Mean Corpuscular Volume 95.3 FL (87-102); Mean Platelet Volume 11.2 FL (9.6-12.0); Monocytes # 0.6 10*3/uL (0.11-0.8); Neutrophils # 11.8 10*3/uL (1.4-7.4); Neutrophils % 76.8 % (38.7-73.9); Platelet Count 460 T/CUMM (130-400); Red Cell Distribution Width 22.1 % (9.3-17.3); White Blood Count 15.4 T/CUMM (4-12)
[2018-09-15] MEDS: MEGESTROL 400 MG/10 ML UDCUP PO SCH (09:11)
[2018-09-15] MEDS: PANTOPRAZOLE 40 MG TABLET PO SCH (09:12)
[2018-09-15] MEDS: FINASTERIDE 5 MG TABLET PO SCH (09:12)
[2018-09-15] MEDS: FERROUS SULFATE 325 MG TABLET PO SCH ×2 (09:12→17:46)
[2018-09-15] MEDS: CALCIUM (CARBONATE)/VITAMIN D 600 MG-400 UNIT TABLET PO SCH (09:12)
[2018-09-15] MEDS: TAMSULOSIN 0.4 MG CAPSULE PO SCH (09:12)
[2018-09-15] MEDS: ASPIRIN EC 81 MG TABLET PO SCH ×2 (09:12→17:46)
[2018-09-15] MEDS: ZINC SULFATE 220 MG CAPSULE PO SCH (09:12)
[2018-09-15] MEDS: ASCORBIC ACID 500 MG TABLET PO SCH (09:12)
[2018-09-15] MEDS: BISOPROLOL 5 MG TABLET PO SCH (09:12)
[2018-09-15] MEDS: MULTIVITAMIN (CENTRUM) TABLET PO SCH (09:12)
[2018-09-15] MEDS: FUROSEMIDE 40 MG/4 ML VIAL IV SCH (09:13)
[2018-09-15 09:17] LABS: Hypochromasia 1+; Microcytosis Slight; Ovalocytes Slight; Platelet Estimate Increased; Polychromasia Few; Schistocytes Few; Target Cells Slight
[2018-09-15] MEDS: HEPARIN DRIP 25,000 UNITS/500 ML PREMIX IV SCH (12:17)
[2018-09-15] MEDS ORDERED: ZINC OXIDE 20% OINT 28.35 GM TUBE TOP PRN (14:06)
[2018-09-15] MEDS ORDERED: DEXTROSE 5% NACL 0.22% 1,000 ML IV SCH (16:30)
[2018-09-16] MEDS: VANCOMYCIN 50 MG/ML 60 ML/BOTTLE PO SCH ×4 (00:51→18:00)
[2018-09-16] MEDS: INSULIN REGULAR 100 UNIT/ML SUBCUT SCH ×4 (00:52→18:00)
[2018-09-16 05:36] LABS: Basophils # 0.1 10*3/uL (0.0-0.2); Basophils % 0.6 % (0.0-0.8); Eosinophils # 0.7 10*3/uL (0.0-0.87); Hematocrit 38.3 VOL% (42.0-52.0); Hemoglobin 11.6 GM/DL (14.0-18.0); Immature Granulocytes % 3.1 %; Lymphocytes # 1.8 10*3/uL (1.4-4.0); Mean Corpuscular HGB Conc 30.3 GM/DL (32-36); Mean Corpuscular Hemoglobin 29 PG (27-34); Mean Corpuscular Volume 95.3 FL (87-102); Mean Platelet Volume 11.2 FL (9.6-12.0); Monocytes # 0.7 10*3/uL (0.11-0.8); Monocytes % 4.3 % (1.7-12.7); Neutrophils # 12.6 10*3/uL (1.4-7.4); Platelet Count 428 T/CUMM (130-400); Red Blood Count 4.02 MC/CUMM (3.8-5.5); Red Cell Distribution Width 22.1 % (9.3-17.3); White Blood Count 16.3 T/CUMM (4-12)
[2018-09-16 05:40] LABS: INR 1.3; PT Patient Result 13.8 SECS
[2018-09-16 05:55] LABS: Partial Thromboplastin Time 51.5 SECS (0-40)
[2018-09-16 06:01] LABS: Calcium 7.4 MG/DL (8.5-10.1); Osmolality,Calculated 301.4 MOS/KG (273-304); Potassium 3.3 MMOL/L (3.5-5.1)
[2018-09-16 07:05] LABS: Anisocytosis 1+; Hypochromasia 1+; Microcytosis 1+; Poikilocytosis 1+; Polychromasia Slight; Target Cells Slight
[2018-09-16 07:06] LABS: Acanthocytes Few; Burr Cells Few; Platelet Estimate Increased; Tear Drop Cells Slight
[2018-09-16] MEDS: HEPARIN DRIP 25,000 UNITS/500 ML PREMIX IV SCH ×2 (09:41→11:47)
[2018-09-16] MEDS: MULTIVITAMIN (CENTRUM) TABLET PO SCH (09:59)
[2018-09-16] MEDS: MEGESTROL 400 MG/10 ML UDCUP PO SCH (09:59)
[2018-09-16] MEDS: ZINC SULFATE 220 MG CAPSULE PO SCH (09:59)
[2018-09-16] MEDS: FINASTERIDE 5 MG TABLET PO SCH (09:59)
[2018-09-16] MEDS: CALCIUM (CARBONATE)/VITAMIN D 600 MG-400 UNIT TABLET PO SCH (09:59)
[2018-09-16] MEDS: DIGOXIN 0.125 MG TABLET PO SCH (09:59)
[2018-09-16] MEDS: BISOPROLOL 5 MG TABLET PO SCH (10:01)
[2018-09-16] MEDS: PANTOPRAZOLE 40 MG TABLET PO SCH (10:01)
[2018-09-16] MEDS: ASCORBIC ACID 500 MG TABLET PO SCH (10:02)
[2018-09-16] MEDS: ASPIRIN EC 81 MG TABLET PO SCH ×2 (10:02→17:59)
[2018-09-16] MEDS: FERROUS SULFATE 325 MG TABLET PO SCH ×2 (10:02→18:00)
[2018-09-16] MEDS: TAMSULOSIN 0.4 MG CAPSULE PO SCH (10:02)
[2018-09-16] MEDS: POTASSIUM CHLORIDE 8 MEQ CAPSULE PO SCH (10:06)
[2018-09-16] MEDS ORDERED: DEXTROSE 5% NACL 0.22% 1,000 ML IV SCH (12:30)
[2018-09-16] MEDS: POTASSIUM CHLORIDE RIDER 10 MEQ in PREMIX 1 EACH IV SCH ×3 (16:45→19:00)
[2018-09-16] MEDS: POTASSIUM CHLORIDE RIDER 10 MEQ in PREMIX 1 EACH IV PRN (21:48)
[2018-09-17] MEDS: POTASSIUM CHLORIDE RIDER 10 MEQ in PREMIX 1 EACH IV SCH (00:47)
[2018-09-17] MEDS: INSULIN REGULAR 100 UNIT/ML SUBCUT SCH ×4 (01:28→18:30)
[2018-09-17] MEDS: VANCOMYCIN 50 MG/ML 60 ML/BOTTLE PO SCH ×4 (01:29→17:13)
[2018-09-17] MEDS ORDERED: ceFAZolin 1,000 MG in SYRINGE 1 EACH IV ONE (06:00)
[2018-09-17 06:41] LABS: Basophils # 0.1 10*3/uL (0.0-0.2); Basophils % 0.5 % (0.0-0.8); Eosinophils # 0.5 10*3/uL (0.0-0.87); Eosinophils % 3.3 % (0.00-10.9); Hematocrit 37.9 VOL% (42.0-52.0); Hemoglobin 11.7 GM/DL (14.0-18.0); Immature Granulocytes % 2.1 %; Immature Granulocytes Absolute 0.32 #; Lymphocytes # 2.2 10*3/uL (1.4-4.0); Lymphocytes % 14.2 % (21.2-54.2); Mean Corpuscular HGB Conc 30.9 GM/DL (32-36); Mean Corpuscular Hemoglobin 29 PG (27-34); Mean Corpuscular Volume 94.3 FL (87-102); Monocytes # 0.8 10*3/uL (0.11-0.8); Neutrophils # 11.5 10*3/uL (1.4-7.4); Neutrophils % 74.9 % (38.7-73.9); Platelet Count 414 T/CUMM (130-400); Red Blood Count 4.02 MC/CUMM (3.8-5.5); Red Cell Distribution Width 21.7 % (9.3-17.3); White Blood Count 15.3 T/CUMM (4-12)
[2018-09-17 06:50] LABS: INR 1.2; PT Patient Result 12.6 SECS; Partial Thromboplastin Time 29.5 SECS (0-40)
[2018-09-17 06:51] LABS: INR 1.1; PT Patient Result 12.1 SECS
[2018-09-17 07:16] LABS: Calcium 7.5 MG/DL (8.5-10.1); Osmolality,Calculated 286.1 MOS/KG (273-304); Potassium 3.7 MMOL/L (3.5-5.1)
[2018-09-17 07:31] LABS: Calcium 7.3 MG/DL (8.5-10.1); Osmolality,Calculated 283.3 MOS/KG (273-304); Potassium 3.8 MMOL/L (3.5-5.1)
[2018-09-17] MEDS: FERROUS SULFATE 325 MG TABLET PO SCH ×2 (09:44→17:13)
[2018-09-17] MEDS: CALCIUM (CARBONATE)/VITAMIN D 600 MG-400 UNIT TABLET PO SCH (09:44)
[2018-09-17] MEDS: MULTIVITAMIN (CENTRUM) TABLET PO SCH (09:44)
[2018-09-17] MEDS: ASPIRIN EC 81 MG TABLET PO SCH ×2 (09:44→17:13)
[2018-09-17] MEDS: TAMSULOSIN 0.4 MG CAPSULE PO SCH (09:45)
[2018-09-17] MEDS: BISOPROLOL 5 MG TABLET PO SCH (09:45)
[2018-09-17] MEDS: FINASTERIDE 5 MG TABLET PO SCH (09:45)
[2018-09-17] MEDS: ASCORBIC ACID 500 MG TABLET PO SCH (09:45)
[2018-09-17] MEDS: MEGESTROL 400 MG/10 ML UDCUP PO SCH (09:45)
[2018-09-17] MEDS: PANTOPRAZOLE 40 MG TABLET PO SCH (09:45)
[2018-09-17] MEDS: DIGOXIN 0.125 MG TABLET PO SCH (09:45)
[2018-09-17] MEDS: ZINC SULFATE 220 MG CAPSULE PO SCH (09:46)
[2018-09-17] MEDS: POTASSIUM CHLORIDE RIDER 10 MEQ in PREMIX 1 EACH IV PRN (09:48)
[2018-09-17] MEDS ORDERED: ETOMIDATE 20 MG/10 ML VIAL IV ONE (10:00)
[2018-09-17] MEDS ORDERED: LIDOCAINE 2% 5 ML VIAL ONE (10:00)
[2018-09-17] MEDS ORDERED: PROPOFOL 200 MG/20 ML VIAL IV ONE (10:00)
[2018-09-17] MEDS ORDERED: HEPARIN DRIP 25,000 UNITS/500 ML PREMIX IV SCH (15:00)
[2018-09-17] MEDS: ceFAZolin 1,000 MG in SYRINGE 1 EACH IV SCH ×2 (15:20→23:14)
[2018-09-17] MEDS: HEPARIN DRIP 25,000 UNITS/500 ML PREMIX IV SCH (15:24)
[2018-09-17 21:31] LABS: INR 1.2; PT Patient Result 13.1 SECS; Partial Thromboplastin Time 31.7 SECS (0-40)
[2018-09-17 23:02] LABS: INR 1.2
[2018-09-18] MEDS: INSULIN REGULAR 100 UNIT/ML SUBCUT SCH ×4 (01:47→20:05)
[2018-09-18] MEDS: VANCOMYCIN 50 MG/ML 60 ML/BOTTLE PO SCH ×2 (01:49→06:42)
[2018-09-18 05:52] LABS: Basophils # 0.1 10*3/uL (0.0-0.2); Basophils % 0.7 % (0.0-0.8); Eosinophils # 0.4 10*3/uL (0.0-0.87); Hematocrit 37.3 VOL% (42.0-52.0); Hemoglobin 11.3 GM/DL (14.0-18.0); Immature Granulocytes % 1.7 %; Immature Granulocytes Absolute 0.21 #; Lymphocytes # 1.7 10*3/uL (1.4-4.0); Lymphocytes % 14.1 % (21.2-54.2); Mean Corpuscular HGB Conc 30.3 GM/DL (32-36); Mean Corpuscular Hemoglobin 29 PG (27-34); Mean Corpuscular Volume 94.2 FL (87-102); Mean Platelet Volume 10.8 FL (9.6-12.0); Monocytes # 0.7 10*3/uL (0.11-0.8); Monocytes % 5.6 % (1.7-12.7); Neutrophils # 9.1 10*3/uL (1.4-7.4); Neutrophils % 74.9 % (38.7-73.9); Platelet Count 370 T/CUMM (130-400); Red Blood Count 3.96 MC/CUMM (3.8-5.5); Red Cell Distribution Width 21.3 % (9.3-17.3); White Blood Count 12.1 T/CUMM (4-12)
[2018-09-18 05:59] LABS: INR 1.2; PT Patient Result 13.2 SECS
[2018-09-18] MEDS ORDERED: ceFAZolin 1,000 MG in SYRINGE 1 EACH IV ONE ×2 (06:00→13:00)
[2018-09-18 06:07] LABS: Calcium 7.4 MG/DL (8.5-10.1); Osmolality,Calculated 282.3 MOS/KG (273-304); Osmolality,Calculated 283.1 MOS/KG (273-304); Potassium 3.6 MMOL/L (3.5-5.1); Potassium 3.7 MMOL/L (3.5-5.1)
[2018-09-18] MEDS: CALCIUM (CARBONATE)/VITAMIN D 600 MG-400 UNIT TABLET PO SCH (10:13)
[2018-09-18] MEDS: TAMSULOSIN 0.4 MG CAPSULE PO SCH (10:13)
[2018-09-18] MEDS: ASPIRIN EC 81 MG TABLET PO SCH ×2 (10:13→20:04)
[2018-09-18] MEDS: FINASTERIDE 5 MG TABLET PO SCH (10:13)
[2018-09-18] MEDS: FERROUS SULFATE 325 MG TABLET PO SCH ×2 (10:13→20:04)
[2018-09-18] MEDS: MULTIVITAMIN (CENTRUM) TABLET PO SCH (10:13)
[2018-09-18] MEDS: MEGESTROL 400 MG/10 ML UDCUP PO SCH (10:13)
[2018-09-18] MEDS: PANTOPRAZOLE 40 MG TABLET PO SCH (10:14)
[2018-09-18] MEDS: ZINC SULFATE 220 MG CAPSULE PO SCH (10:14)
[2018-09-18] MEDS: BISOPROLOL 5 MG TABLET PO SCH (10:14)
[2018-09-18] MEDS: ASCORBIC ACID 500 MG TABLET PO SCH (10:14)
[2018-09-18] MEDS ORDERED: BUPIVACAINE 0.5% 50 ML VIAL ONE ×2 (12:46→13:03)
[2018-09-18] MEDS ORDERED: LIDOCAINE 2%/EPI 20 ML VIAL ONE (13:00)
[2018-09-18] MEDS ORDERED: BACITRACIN OINT 0.9 GM PACK TOP ONE (13:03)
[2018-09-18] MEDS ORDERED: DEXTROSE 50% 25 GM/50 ML VIAL IV ONE (13:37)
[2018-09-18] MEDS ORDERED: DEXTROSE 50% 25 GM/50 ML SYRINGE IV ONE (13:44)
[2018-09-18] MEDS ORDERED: MIDAZOLAM 2 MG/2 ML VIAL ONE (15:46)
[2018-09-18] MEDS ORDERED: PROPOFOL 200 MG/20 ML VIAL IV ONE (15:46)
[2018-09-18] MEDS ORDERED: SODIUM CHLORIDE 0.9% 100 ML IV ONE (15:47)
[2018-09-18] MEDS ORDERED: ePHEDrine 50 MG/ML AMP ONE (15:47)
[2018-09-18] MEDS ORDERED: PHENYLEPHRINE 1 MG/10 ML SYRINGE IV ONE (15:47)
[2018-09-18] MEDS ORDERED: ETOMIDATE 40 MG/20 ML VIAL IV ONE (15:47)
[2018-09-18] MEDS: HEPARIN DRIP 25,000 UNITS/500 ML PREMIX IV SCH (17:07)
[2018-09-18] MEDS: WARFARIN 2.5 MG TABLET PO SCH (20:04)
[2018-09-19] MEDS: INSULIN REGULAR 100 UNIT/ML SUBCUT SCH ×4 (00:38→17:41)
[2018-09-19 06:06] LABS: Basophils # 0.1 10*3/uL (0.0-0.2); Basophils % 0.7 % (0.0-0.8); Eosinophils # 0.4 10*3/uL (0.0-0.87); Eosinophils % 3.4 % (0.00-10.9); Hematocrit 37.2 VOL% (42.0-52.0); Hemoglobin 11.5 GM/DL (14.0-18.0); Immature Granulocytes % 1.5 %; Immature Granulocytes Absolute 0.17 #; Lymphocytes # 1.7 10*3/uL (1.4-4.0); Lymphocytes % 15.8 % (21.2-54.2); Mean Corpuscular HGB Conc 30.9 GM/DL (32-36); Mean Corpuscular Hemoglobin 29 PG (27-34); Mean Corpuscular Volume 93.2 FL (87-102); Mean Platelet Volume 11.6 FL (9.6-12.0); Monocytes # 0.9 10*3/uL (0.11-0.8); Monocytes % 7.7 % (1.7-12.7); Neutrophils # 7.8 10*3/uL (1.4-7.4); Neutrophils % 70.9 % (38.7-73.9); Platelet Count 365 T/CUMM (130-400); Red Blood Count 3.99 MC/CUMM (3.8-5.5); Red Cell Distribution Width 21.3 % (9.3-17.3)
[2018-09-19 06:10] LABS: INR 1.4; PT Patient Result 15.4 SECS
[2018-09-19 06:14] LABS: Calcium 7.6 MG/DL (8.5-10.1); Potassium 3.1 MMOL/L (3.5-5.1)
[2018-09-19 07:34] LABS: INR 1.4; PT Patient Result 15.4 SECS
[2018-09-19 07:43] LABS: Partial Thromboplastin Time 43.7 SECS (0-40)
[2018-09-19] MEDS: MULTIVITAMIN (CENTRUM) TABLET PO SCH (08:58)
[2018-09-19] MEDS: BISOPROLOL 5 MG TABLET PO SCH (08:58)
[2018-09-19] MEDS: DIGOXIN 0.125 MG TABLET PO SCH (08:58)
[2018-09-19] MEDS: FERROUS SULFATE 325 MG TABLET PO SCH ×2 (08:59→17:40)
[2018-09-19] MEDS: ZINC SULFATE 220 MG CAPSULE PO SCH (08:59)
[2018-09-19] MEDS: CALCIUM (CARBONATE)/VITAMIN D 600 MG-400 UNIT TABLET PO SCH (08:59)
[2018-09-19] MEDS: ASPIRIN EC 81 MG TABLET PO SCH ×2 (08:59→17:40)
[2018-09-19] MEDS: TAMSULOSIN 0.4 MG CAPSULE PO SCH (08:59)
[2018-09-19] MEDS: MEGESTROL 400 MG/10 ML UDCUP PO SCH (08:59)
[2018-09-19] MEDS: ASCORBIC ACID 500 MG TABLET PO SCH (08:59)
[2018-09-19] MEDS: FINASTERIDE 5 MG TABLET PO SCH (08:59)
[2018-09-19] MEDS: PANTOPRAZOLE 40 MG TABLET PO SCH (08:59)
[2018-09-19] MEDS: VANCOMYCIN 50 MG/ML 60 ML/BOTTLE PEG SCH ×3 (12:19→23:55)
[2018-09-19 14:10] LABS: INR 1.3; PT Patient Result 14.4 SECS
[2018-09-19 14:13] LABS: Partial Thromboplastin Time 41.3 SECS (0-40)
[2018-09-19] MEDS: COLLAGENASE OINT 30 GM TUBE TOP SCH (17:37)
[2018-09-19] MEDS: HEPARIN DRIP 25,000 UNITS/500 ML PREMIX IV SCH (17:38)
[2018-09-19] MEDS: WARFARIN 2.5 MG TABLET PO SCH (17:40)
[2018-09-20] MEDS: INSULIN REGULAR 100 UNIT/ML SUBCUT SCH ×4 (00:07→18:45)
[2018-09-20 00:28] LABS: INR 1.3
[2018-09-20 00:33] LABS: Partial Thromboplastin Time 45.6 SECS (0-40)
[2018-09-20] MEDS: VANCOMYCIN 50 MG/ML 60 ML/BOTTLE PEG SCH ×4 (05:41→23:56)
[2018-09-20 06:13] LABS: Basophils # 0.1 10*3/uL (0.0-0.2); Basophils % 0.5 % (0.0-0.8); Eosinophils # 0.4 10*3/uL (0.0-0.87); Eosinophils % 3.6 % (0.00-10.9); Hematocrit 36.2 VOL% (42.0-52.0); Immature Granulocytes % 1.2 %; Immature Granulocytes Absolute 0.14 #; Lymphocytes % 17.6 % (21.2-54.2); Mean Corpuscular HGB Conc 30.4 GM/DL (32-36); Mean Corpuscular Hemoglobin 29 PG (27-34); Mean Corpuscular Volume 93.8 FL (87-102); Mean Platelet Volume 11.5 FL (9.6-12.0); Monocytes # 0.9 10*3/uL (0.11-0.8); Monocytes % 7.6 % (1.7-12.7); Neutrophils # 7.8 10*3/uL (1.4-7.4); Neutrophils % 69.5 % (38.7-73.9); Platelet Count 354 T/CUMM (130-400); Red Blood Count 3.86 MC/CUMM (3.8-5.5); Red Cell Distribution Width 21.4 % (9.3-17.3); White Blood Count 11.3 T/CUMM (4-12)
[2018-09-20 06:25] LABS: Calcium 7.3 MG/DL (8.5-10.1); INR 1.3; Osmolality,Calculated 281.3 MOS/KG (273-304); PT Patient Result 13.8 SECS; Potassium 3.1 MMOL/L (3.5-5.1)
[2018-09-20 06:29] LABS: Calcium 7.3 MG/DL (8.5-10.1); Osmolality,Calculated 281.3 MOS/KG (273-304); Potassium 3.1 MMOL/L (3.5-5.1); Prealbumin 8.2 MG/DL (20-40)
[2018-09-20] MEDS: FERROUS SULFATE 325 MG TABLET PO SCH ×2 (09:56→16:56)
[2018-09-20] MEDS: BISOPROLOL 5 MG TABLET PO SCH (09:56)
[2018-09-20] MEDS: COLLAGENASE OINT 30 GM TUBE TOP SCH (09:56)
[2018-09-20] MEDS: TAMSULOSIN 0.4 MG CAPSULE PO SCH (09:56)
[2018-09-20] MEDS: ASPIRIN EC 81 MG TABLET PO SCH ×2 (09:56→16:56)
[2018-09-20] MEDS: MULTIVITAMIN (CENTRUM) TABLET PO SCH (09:56)
[2018-09-20] MEDS: PANTOPRAZOLE 40 MG TABLET PO SCH (09:56)
[2018-09-20] MEDS: ASCORBIC ACID 500 MG TABLET PO SCH (09:56)
[2018-09-20] MEDS: MEGESTROL 400 MG/10 ML UDCUP PO SCH (09:56)
[2018-09-20] MEDS: CALCIUM (CARBONATE)/VITAMIN D 600 MG-400 UNIT TABLET PO SCH (09:56)
[2018-09-20] MEDS: FINASTERIDE 5 MG TABLET PO SCH (09:56)
[2018-09-20] MEDS: ZINC SULFATE 220 MG CAPSULE PO SCH (09:56)
[2018-09-20] MEDS: WARFARIN 2.5 MG TABLET PO SCH (17:01)
[2018-09-20] MEDS: HEPARIN DRIP 25,000 UNITS/500 ML PREMIX IV SCH (17:10)
[2018-09-20] MEDS ORDERED: HEPARIN 5,000 UNIT/1 ML VIAL IV PRN (22:04)
[2018-09-21] MEDS: INSULIN REGULAR 100 UNIT/ML SUBCUT SCH ×4 (00:35→18:27)
[2018-09-21] MEDS: VANCOMYCIN 50 MG/ML 60 ML/BOTTLE PEG SCH ×3 (05:51→18:43)
[2018-09-21] MEDS: TAMSULOSIN 0.4 MG CAPSULE PO SCH (08:33)
[2018-09-21] MEDS: CALCIUM (CARBONATE)/VITAMIN D 600 MG-400 UNIT TABLET PO SCH (08:33)
[2018-09-21] MEDS: FINASTERIDE 5 MG TABLET PO SCH (08:34)
[2018-09-21] MEDS: DIGOXIN 0.125 MG TABLET PO SCH (08:34)
[2018-09-21] MEDS: FERROUS SULFATE 325 MG TABLET PO SCH ×2 (08:34→18:00)
[2018-09-21] MEDS: MULTIVITAMIN (CENTRUM) TABLET PO SCH (08:34)
[2018-09-21] MEDS: BISOPROLOL 5 MG TABLET PO SCH (08:34)
[2018-09-21] MEDS: MEGESTROL 400 MG/10 ML UDCUP PO SCH (08:34)
[2018-09-21] MEDS: ZINC SULFATE 220 MG CAPSULE PO SCH (08:34)
[2018-09-21] MEDS: ASCORBIC ACID 500 MG TABLET PO SCH (08:35)
[2018-09-21] MEDS: PANTOPRAZOLE 40 MG TABLET PO SCH (08:35)
[2018-09-21] MEDS: COLLAGENASE OINT 30 GM TUBE TOP SCH (08:35)
[2018-09-21] MEDS: ASPIRIN EC 81 MG TABLET PO SCH ×2 (08:35→18:00)
[2018-09-21 10:07] LABS: INR 1.3; PT Patient Result 13.8 SECS
[2018-09-21] MEDS: HEPARIN DRIP 25,000 UNITS/500 ML PREMIX IV SCH (12:07)
[2018-09-21] MEDS ORDERED: WARFARIN 4 MG TABLET PO ONE (18:00)
[2018-09-22] MEDS: INSULIN REGULAR 100 UNIT/ML SUBCUT SCH ×4 (00:10→21:44)
[2018-09-22] MEDS: VANCOMYCIN 50 MG/ML 60 ML/BOTTLE PEG SCH ×3 (00:30→14:56)
[2018-09-22 06:36] LABS: Basophils # 0.1 10*3/uL (0.0-0.2); Basophils % 0.8 % (0.0-0.8); Eosinophils # 0.3 10*3/uL (0.0-0.87); Eosinophils % 3.6 % (0.00-10.9); Hematocrit 35.8 VOL% (42.0-52.0); Hemoglobin 10.8 GM/DL (14.0-18.0); Immature Granulocytes % 0.6 %; Immature Granulocytes Absolute 0.06 #; Lymphocytes % 21.2 % (21.2-54.2); Mean Corpuscular HGB Conc 30.2 GM/DL (32-36); Mean Corpuscular Hemoglobin 29 PG (27-34); Mean Corpuscular Volume 95.2 FL (87-102); Mean Platelet Volume 11.8 FL (9.6-12.0); Monocytes # 0.7 10*3/uL (0.11-0.8); Monocytes % 7.4 % (1.7-12.7); Neutrophils # 6.3 10*3/uL (1.4-7.4); Neutrophils % 66.4 % (38.7-73.9); Platelet Count 271 T/CUMM (130-400); Red Blood Count 3.76 MC/CUMM (3.8-5.5); Red Cell Distribution Width 21.9 % (9.3-17.3); White Blood Count 9.5 T/CUMM (4-12)
[2018-09-22 06:53] LABS: Calcium 7.4 MG/DL (8.5-10.1); Potassium 3.2 MMOL/L (3.5-5.1)
[2018-09-22 06:59] LABS: INR 1.2; PT Patient Result 13.2 SECS
[2018-09-22] MEDS: ASPIRIN EC 81 MG TABLET PO SCH ×2 (11:06→21:43)
[2018-09-22] MEDS: BISOPROLOL 5 MG TABLET PO SCH (11:07)
[2018-09-22] MEDS: ASCORBIC ACID 500 MG TABLET PO SCH (11:08)
[2018-09-22] MEDS: FINASTERIDE 5 MG TABLET PO SCH (11:08)
[2018-09-22] MEDS: FERROUS SULFATE 325 MG TABLET PO SCH ×2 (11:09→21:44)
[2018-09-22] MEDS: CALCIUM (CARBONATE)/VITAMIN D 600 MG-400 UNIT TABLET PO SCH (11:09)
[2018-09-22] MEDS: MULTIVITAMIN (CENTRUM) TABLET PO SCH (11:09)
[2018-09-22] MEDS: PANTOPRAZOLE 40 MG TABLET PO SCH (11:09)
[2018-09-22] MEDS: ZINC SULFATE 220 MG CAPSULE PO SCH (11:10)
[2018-09-22] MEDS: TAMSULOSIN 0.4 MG CAPSULE PO SCH (11:10)
[2018-09-22] MEDS: COLLAGENASE OINT 30 GM TUBE TOP SCH (11:50)
[2018-09-22] MEDS: MEGESTROL 400 MG/10 ML UDCUP PO SCH (11:50)
[2018-09-22] MEDS: HEPARIN DRIP 25,000 UNITS/500 ML PREMIX IV SCH (13:14)
[2018-09-22] MEDS: CLOTRIMAZOLE 10 MG TROCHE PO SCH ×3 (14:57→23:16)
[2018-09-22] MEDS ORDERED: WARFARIN 3 MG TABLET PO SCH (18:00)
[2018-09-22] MEDS: WARFARIN 4 MG TABLET PO SCH (21:44)
[2018-09-23] MEDS: INSULIN REGULAR 100 UNIT/ML SUBCUT SCH ×4 (05:41→19:38)
[2018-09-23 05:51] LABS: Basophils # 0.1 10*3/uL (0.0-0.2); Basophils % 0.8 % (0.0-0.8); Eosinophils # 0.3 10*3/uL (0.0-0.87); Eosinophils % 3.3 % (0.00-10.9); Hematocrit 32.5 VOL% (42.0-52.0); Hemoglobin 10.1 GM/DL (14.0-18.0); Immature Granulocytes % 0.4 %; Immature Granulocytes Absolute 0.03 #; Mean Corpuscular HGB Conc 31.1 GM/DL (32-36); Mean Corpuscular Hemoglobin 29 PG (27-34); Mean Corpuscular Volume 93.9 FL (87-102); Mean Platelet Volume 11.1 FL (9.6-12.0); Monocytes # 0.6 10*3/uL (0.11-0.8); Monocytes % 6.9 % (1.7-12.7); Neutrophils # 5.6 10*3/uL (1.4-7.4); Neutrophils % 65.6 % (38.7-73.9); Platelet Count 319 T/CUMM (130-400); Red Blood Count 3.46 MC/CUMM (3.8-5.5); Red Cell Distribution Width 21.5 % (9.3-17.3); White Blood Count 8.5 T/CUMM (4-12)
[2018-09-23 05:56] LABS: INR 1.2; PT Patient Result 12.8 SECS
[2018-09-23 06:02] LABS: Calcium 7.3 MG/DL (8.5-10.1); Osmolality,Calculated 284.3 MOS/KG (273-304); Potassium 3.4 MMOL/L (3.5-5.1)
[2018-09-23] MEDS: CLOTRIMAZOLE 10 MG TROCHE PO SCH ×4 (08:54→21:22)
[2018-09-23] MEDS: HEPARIN DRIP 25,000 UNITS/500 ML PREMIX IV SCH (09:45)
[2018-09-23] MEDS: ASCORBIC ACID 500 MG TABLET PO SCH (12:15)
[2018-09-23] MEDS: PANTOPRAZOLE 40 MG TABLET PO SCH (12:15)
[2018-09-23] MEDS: ZINC SULFATE 220 MG CAPSULE PO SCH (12:16)
[2018-09-23] MEDS: MULTIVITAMIN (CENTRUM) TABLET PO SCH (12:16)
[2018-09-23] MEDS: MEGESTROL 400 MG/10 ML UDCUP PO SCH (12:16)
[2018-09-23] MEDS: TAMSULOSIN 0.4 MG CAPSULE PO SCH (12:16)
[2018-09-23] MEDS: CALCIUM (CARBONATE)/VITAMIN D 600 MG-400 UNIT TABLET PO SCH (12:17)
[2018-09-23] MEDS: ASPIRIN EC 81 MG TABLET PO SCH ×2 (12:17→17:32)
[2018-09-23] MEDS: DIGOXIN 0.125 MG TABLET PO SCH (12:17)
[2018-09-23] MEDS: FINASTERIDE 5 MG TABLET PO SCH (12:17)
[2018-09-23] MEDS: BISOPROLOL 5 MG TABLET PO SCH (12:18)
[2018-09-23] MEDS: COLLAGENASE OINT 30 GM TUBE TOP SCH (12:18)
[2018-09-23] MEDS: FERROUS SULFATE 325 MG TABLET PO SCH ×2 (12:19→17:32)
[2018-09-23] MEDS: POTASSIUM CHLORIDE 20 MEQ/15 ML UDCUP PO PRN ×3 (12:20→21:22)
[2018-09-23] MEDS: WARFARIN 4 MG TABLET PO SCH (17:32)
[2018-09-23] MEDS: NYSTATIN 500,000 UNIT/5 ML UDCUP SWISH/SWAL SCH (19:40)
[2018-09-24] MEDS: INSULIN REGULAR 100 UNIT/ML SUBCUT SCH ×4 (01:12→17:17)
[2018-09-24 04:52] LABS: Basophils # 0.1 10*3/uL (0.0-0.2); Eosinophils # 0.3 10*3/uL (0.0-0.87); Eosinophils % 2.8 % (0.00-10.9); Hematocrit 32.7 VOL% (42.0-52.0); Immature Granulocytes % 0.5 %; Immature Granulocytes Absolute 0.05 #; Lymphocytes # 1.9 10*3/uL (1.4-4.0); Mean Corpuscular HGB Conc 30.6 GM/DL (32-36); Mean Corpuscular Hemoglobin 29 PG (27-34); Mean Corpuscular Volume 95.6 FL (87-102); Mean Platelet Volume 11.4 FL (9.6-12.0); Monocytes # 0.8 10*3/uL (0.11-0.8); Monocytes % 7.7 % (1.7-12.7); Neutrophils # 6.7 10*3/uL (1.4-7.4); Platelet Count 288 T/CUMM (130-400); Red Blood Count 3.42 MC/CUMM (3.8-5.5); Red Cell Distribution Width 21.7 % (9.3-17.3); White Blood Count 9.8 T/CUMM (4-12)
[2018-09-24 04:59] LABS: INR 1.3; PT Patient Result 13.7 SECS
[2018-09-24 05:06] LABS: Calcium 7.6 MG/DL (8.5-10.1); Potassium 4.2 MMOL/L (3.5-5.1)
[2018-09-24] MEDS: ASPIRIN EC 81 MG TABLET PO SCH ×2 (09:31→17:16)
[2018-09-24] MEDS: MULTIVITAMIN (CENTRUM) TABLET PO SCH (09:31)
[2018-09-24] MEDS: CLOTRIMAZOLE 10 MG TROCHE PO SCH ×4 (09:31→22:40)
[2018-09-24] MEDS: DIGOXIN 0.125 MG TABLET PO SCH (09:31)
[2018-09-24] MEDS: FERROUS SULFATE 300 MG/5 ML UDCUP PO SCH ×2 (09:31→17:16)
[2018-09-24] MEDS: ZINC SULFATE 220 MG CAPSULE PO SCH (09:31)
[2018-09-24] MEDS: CALCIUM (CARBONATE)/VITAMIN D 600 MG-400 UNIT TABLET PO SCH (09:31)
[2018-09-24] MEDS: TAMSULOSIN 0.4 MG CAPSULE PO SCH (09:32)
[2018-09-24] MEDS: MEGESTROL 400 MG/10 ML UDCUP PO SCH (09:32)
[2018-09-24] MEDS: PANTOPRAZOLE 40 MG TABLET PO SCH (09:32)
[2018-09-24] MEDS: COLLAGENASE OINT 30 GM TUBE TOP SCH (09:32)
[2018-09-24] MEDS: BISOPROLOL 5 MG TABLET PO SCH (09:32)
[2018-09-24] MEDS: ASCORBIC ACID 500 MG TABLET PO SCH (09:32)
[2018-09-24] MEDS: FINASTERIDE 5 MG TABLET PO SCH (09:32)
[2018-09-24] MEDS ORDERED: WARFARIN 4 MG TABLET PO SCH (18:00)
[2018-09-24] MEDS ORDERED: WARFARIN 7.5 MG TABLET PO ONE (18:00)
[2018-09-24] MEDS ORDERED: NYSTATIN 500,000 UNIT/5 ML UDCUP SWISH/SWAL SCH (21:00)
[2018-09-24] MEDS: HEPARIN DRIP 25,000 UNITS/500 ML PREMIX IV SCH (23:19)
[2018-09-25] MEDS: INSULIN REGULAR 100 UNIT/ML SUBCUT SCH ×5 (01:20→23:27)
[2018-09-25 05:25] LABS: INR 1.3; PT Patient Result 14.6 SECS
[2018-09-25 05:33] LABS: Calcium 7.8 MG/DL (8.5-10.1); Osmolality,Calculated 281.4 MOS/KG (273-304); Potassium 4.4 MMOL/L (3.5-5.1)
[2018-09-25] MEDS: FERROUS SULFATE 300 MG/5 ML UDCUP PO SCH ×2 (09:20→18:43)
[2018-09-25] MEDS: PANTOPRAZOLE 40 MG TABLET PO SCH (09:20)
[2018-09-25] MEDS: MEGESTROL 400 MG/10 ML UDCUP PO SCH (09:21)
[2018-09-25] MEDS: CLOTRIMAZOLE 10 MG TROCHE PO SCH ×4 (09:21→21:50)
[2018-09-25] MEDS: CALCIUM (CARBONATE)/VITAMIN D 600 MG-400 UNIT TABLET PO SCH (09:21)
[2018-09-25] MEDS: FINASTERIDE 5 MG TABLET PO SCH (09:21)
[2018-09-25] MEDS: ZINC SULFATE 220 MG CAPSULE PO SCH (09:22)
[2018-09-25] MEDS: BISOPROLOL 5 MG TABLET PO SCH (09:22)
[2018-09-25] MEDS: ASPIRIN EC 81 MG TABLET PO SCH ×2 (09:22→18:43)
[2018-09-25] MEDS: MULTIVITAMIN (CENTRUM) TABLET PO SCH (09:22)
[2018-09-25] MEDS: TAMSULOSIN 0.4 MG CAPSULE PO SCH (09:22)
[2018-09-25] MEDS: ASCORBIC ACID 500 MG TABLET PO SCH (09:23)
[2018-09-25] MEDS: ACETAMINOPHEN 325 MG TABLET PO PRN (09:29)
[2018-09-25] MEDS: COLLAGENASE OINT 30 GM TUBE TOP SCH (10:49)
[2018-09-25] MEDS ORDERED: WARFARIN 10 MG TABLET PO ONE (18:00)
[2018-09-25] MEDS: HEPARIN DRIP 25,000 UNITS/500 ML PREMIX IV SCH (22:15)
[2018-09-26 05:00] LABS: Basophils # 0.1 10*3/uL (0.0-0.2); Basophils % 0.4 % (0.0-0.8); Eosinophils % 0.2 % (0.00-10.9); Hematocrit 27.1 VOL% (42.0-52.0); Hemoglobin 8.4 GM/DL (14.0-18.0); Immature Granulocytes % 0.5 %; Lymphocytes # 1.8 10*3/uL (1.4-4.0); Mean Corpuscular Hemoglobin 29 PG (27-34); Mean Corpuscular Volume 94.4 FL (87-102); Mean Platelet Volume 10.6 FL (9.6-12.0); Monocytes # 1.4 10*3/uL (0.11-0.8); Monocytes % 7.6 % (1.7-12.7); Neutrophils # 14.9 10*3/uL (1.4-7.4); Neutrophils % 81.3 % (38.7-73.9); Platelet Count 293 T/CUMM (130-400); Red Blood Count 2.87 MC/CUMM (3.8-5.5); Red Cell Distribution Width 21.9 % (9.3-17.3); White Blood Count 18.3 T/CUMM (4-12)
[2018-09-26 05:16] LABS: PT Patient Result 21.3 SECS
[2018-09-26 05:27] LABS: Calcium 7.9 MG/DL (8.5-10.1); Osmolality,Calculated 276.1 MOS/KG (273-304); Potassium 4.9 MMOL/L (3.5-5.1)
[2018-09-26] MEDS: INSULIN REGULAR 100 UNIT/ML SUBCUT SCH ×3 (07:02→17:57)
[2018-09-26] MEDS: BISOPROLOL 5 MG TABLET PO SCH (10:09)
[2018-09-26] MEDS: CALCIUM (CARBONATE)/VITAMIN D 600 MG-400 UNIT TABLET PO SCH (10:09)
[2018-09-26] MEDS: MULTIVITAMIN (CENTRUM) TABLET PO SCH (10:09)
[2018-09-26] MEDS: TAMSULOSIN 0.4 MG CAPSULE PO SCH (10:10)
[2018-09-26] MEDS: CLOTRIMAZOLE 10 MG TROCHE PO SCH ×2 (10:10→15:11)
[2018-09-26] MEDS: FINASTERIDE 5 MG TABLET PO SCH (10:10)
[2018-09-26] MEDS: ASPIRIN EC 81 MG TABLET PO SCH ×2 (10:10→16:58)
[2018-09-26] MEDS: ZINC SULFATE 220 MG CAPSULE PO SCH (10:10)
[2018-09-26] MEDS: DIGOXIN 0.125 MG TABLET PO SCH (10:10)
[2018-09-26] MEDS: ASCORBIC ACID 500 MG TABLET PO SCH (10:10)
[2018-09-26] MEDS: PANTOPRAZOLE 40 MG TABLET PO SCH (10:10)
[2018-09-26] MEDS: COLLAGENASE OINT 30 GM TUBE TOP SCH (10:11)
[2018-09-26] MEDS: FERROUS SULFATE 300 MG/5 ML UDCUP PO SCH (10:11)
[2018-09-26] MEDS: MEGESTROL 400 MG/10 ML UDCUP PO SCH (10:11)
[2018-09-26 11:23] VITALS: BP 121/97
[2018-09-26 12:18] LABS: ABG Base Excess -1.8 MMOL/L (-2.5-2.5); ABG HCO3 22.9 MMOL/L (20-26); ABG Oxygen Saturation 99.2 % (95-100); ABG PCO2 25.4 MM HG (35-48); ABG PH 7.513 (7.35-7.45); ABG TCO2 18.9 MMOL/L (23-27)
[2018-09-26 13:39] LABS: % Iron Saturation 12.4 % (18-50)
[2018-09-26] MEDS ORDERED: PHENYLEPHRINE DRIP 40 MG/250 ML PREMIX IV ONE (14:10)
[2018-09-26] MEDS ORDERED: PHENYLEPHRINE DRIP 40 MG/250 ML PREMIX IV PRN (15:06)
[2018-09-26 15:45] LABS: Apearance,Urine Slightly Hazy (Clear); Bilirubin,Urine Negative (Negative); Blood, Urine Negative (Negative); Glucose,Urine (UA) 50 mg/dL (Negative); Hyaline Casts,Urine 3 /LPF (0-3); Ketones,Urine Negative (Negative); Mucus,Urine Occasional /LPF (Occasional); Nitrite,Urine Negative (Negative); Protein,Urine 30 MG/DL; RBC,Urine 3 /HPF (0-4); Squamous Epithelial Cell,Urine Occasional /HPF (0-10); Urine Specific Gravity 1.015 (1.001-1.035); Urine Urobilinogen < 2.0 EU/DL (0.2-1.0); WBC,Urine 11 /HPF (0-6)
[2018-09-26 15:46] LABS: Urine Color Dark yellow (Yellow)
[2018-09-26] MEDS ORDERED: FLUCONAZOLE INJ 100 MG in IV BAG 1 EACH IV SCH (16:00)
[2018-09-26] MEDS ORDERED: PIPERACILLIN/TAZOBACTAM 3,375 MG in SODIUM CHLORIDE 0.9% 100 ML IV SCH (16:00)
[2018-09-26 17:08] LABS: Troponin I 0.066 NG/ML (0.00-0.045)
[2018-09-26] MEDS: HEPARIN DRIP 25,000 UNITS/500 ML PREMIX IV SCH (17:55)
[2018-09-26] MEDS ORDERED: MORPHINE 4 MG/1 ML VIAL IV PRN (17:57)
[2018-09-26] MEDS ORDERED: LORazepam 2 MG/1 ML VIAL IV PRN (17:58)
[2018-09-26] MEDS ORDERED: VANCOMYCIN 50 MG/ML 60 ML/BOTTLE PO SCH (18:00)
[2018-09-26] MEDS ORDERED: WARFARIN 4 MG TABLET PEG SCH (18:00)
== END 2018-09-26 18:40 | disposition expired | DRG 853 ==
LOC: EDBD → EDUNIT# → N.ED 16:21 → N.EDINP 19:18 → SUATTDRO 19:18 → N.2E 20:19 → N.3E 20:19 → N.ICU 09-26 14:20
PROVIDERS: ADMIT Internal Medicine; ATTEND Internal Medicine
PROC: EGDWPEG (ICD-10-PCS; 2018-09-17 09:35)